=== PATIENT | female | born 1990 | race Caucasian/White ===

== ENCOUNTER 2019-08-12 12:03 | Emergency (ER) | payer BC, SELFPAY ==
[2019-08-12 12:10] VITALS: BP 140/70; PULSE 100; RESP 14; TEMP 36.8; O2SAT 100
--- NOTE | 2019-08-12 12:18 | ED.WOUNDLAC ---
HPI - Wound/Laceration General Chief Complaint: Wound/Laceration Stated Complaint: remove abhinav Time Seen by Provider: 08/12/19 12:18 Source: patient and RN notes reviewed Mode of arrival: ambulatory Limitations: no limitations History of Present Illness HPI narrative: This is a 28 years old female presented office for a staple removal from her left thigh. It was placed 13 days ago at [facility]. She has been keeping her wound clean and completed her antibiotics. Related Data Home Medications Medication Instructions Recorded Confirmed No Home Medications 08/12/19 08/12/19 Allergies Allergy/AdvReac Type Severity Reaction Status Date / Time No Known Allergies Allergy Verified 08/12/19 12:17 Review of Systems Review of Systems: Narrative: CONSTITUTIONAL: Denies fever or feeling ill CARDIOVASCULAR: Denies chest pain RESPIRATORY: Denies dyspnea GASTROINTESTINAL: Denies nausea, vomiting SKIN: Reports left thigh laceration with 26 stables in placed; has been keeping it clean; however she develops irritant with otc dressing for the last two days; so she has not been putting dressing on the wound for the last two days. MUSCULOSKELETAL: Reports soreness on her left thigh where injury occured. NEUROLOGIC: Denies lightheaded PMFSH Comments At time of signature, I agree with nursing past medical, surgical, social and family history. There is no relevant family history pertinent to the presenting complaint. Exam Narrative: Exam Narrative: GENERAL: This is a well-nourished, well-developed patient, in no apparent distress. NEURO: awake, alert, and oriented to person, place and time. There were no obvious focal neurologic abnormalities. Steady gait EXTREMITIES: posterior left thigh noted expected heal wound, abhinav were easily removed; no active bleeding. Wound is cleaned with alcohol swap prior to removing abhinav and then topical antibiotic ointment placed with dressing. Wound care instruction provide. [place] Coma Scale Eye Opening: Spontaneous 4 [place] Coma Scale Motor: Obeys Commands 6 [place] Coma Scale Verbal: Oriented 5 Course Vital Signs Vital signs: Vital Signs Temperature 98.2 F 08/12/19 12:10 Pulse Rate 100 08/12/19 12:10 Respiratory Rate 14 08/12/19 12:10 Blood Pressure 140/70 08/12/19 12:10 Pulse Oximetry 100 08/12/19 12:10 Temperature 98.2 F 08/12/19 12:10 Pulse Rate 100 08/12/19 12:10 Respiratory Rate 14 08/12/19 12:10 Blood Pressure 140/70 08/12/19 12:10 Pulse Oximetry 100 08/12/19 12:10 MDM - Wound/Laceration MDM Narrative Medical decision making narrative: Patient is Urgent/Emergent. BP elevated due to current condition w/o HTN in PMH (Measure Met). Discharge instructions reviewed with patient, as well as provided in writing per nursing staff. The instructions also include specific and strict return/GO TO THE ER as well as f/u information. All questions have been answered, and the patient deny any further questions with discharge and discharge plan. Differential Diagnosis Differential diagnosis: Likely laceration, abrasion and avulsion of skin Critical Care Time Critical Care Time Critical Care Time: No Discharge Plan Discharge Clinical Impression: Encounter for removal of abhinav Patient Disposition: Home, Self-Care Condition: Stable Instructions: Acute Wounds (DC) Additional Instructions: Keep the wound clean, is better not to cover it with a Band-Aid to promote faster healing however if you do put a dressing make sure to change it every 2-3 hours It is okay to apply hydrocortisone on irritated area where you had the dressing on as long as you do not put it directly on the wound area. When the scab fell off, I recommend you use sunscreen at least 35SPF or higher to reduce scaring and avoid sun exposure if possible. It is normal for clear yellow fluid to drain from the cut and itchy at times; however if you see sign of red
== END 2019-08-12 12:45 | disposition home or self-care (01) ==
PROVIDERS: Emergency Provider Nurse Practitioner
DX: S71.012D Laceration without foreign body, left hip, subsequent encounter (principal); X58.XXXD Exposure to other specified factors, subsequent encounter
CPT/HCPCS: 99211; G0463